=== PATIENT | male | born 1945 | race Caucasian/White ===

== ENCOUNTER 2018-09-12 13:45 | Emergency (ER) | payer MEDICARE ==
[~2018-09-12] VITALS: Ht 175.3 cm; Wt 79.0 kg
--- NOTE | 2018-09-12 14:05 | NUR ---
PT BIB [facility] FOR WEAKNESS, GENERAL MALAISE FOR A FEW DAYS. PER PATIENT, HE IS SEMI-HOMELESS AND WENT FOR A DRIVE LAST NIGHT. PT STATES HE CANT FIND HIS TRUCK AND DOESNT REMEMBER WHERE HE LEFT IT. PT STATED THAT HE RAN INTO [employer] LAST NIGHT AND CANT RECALL WHAT HAPPENED LAST NIGHT. PT IS UNABLE TO RECALL WHAT OCCURRED LAST NIGHT. PT PLACED ON BP, CARDIAC AND CONT. PULSE OXIMETER. ASSESSMENT COMPLETED. MD AT BEDSIDE. EKG DONE AND PRESENTED TO MD. REPORT GIVEN TO BHUMI.
[2018-09-12 14:35] LABS: BASOPHILS # (AUTO) 0.04 x10^3/uL (0-0.1); BASOPHILS % (AUTO) 0 % (0-1); EOSINOPHILS % (AUTO) 0 % (1-7); LYMPHOCYTES # (AUTO) 0.76 x10^3/uL (1-3.4); LYMPHOCYTES % (AUTO) 8 % (22-44); MD NO; MEAN CORPUSCULAR HEMOGLOBIN 29.7 pg (27.5-34.5); MEAN CORPUSCULAR HGB CONC 34.1 g/dL (33.2-36.2); MEAN PLATELET VOLUME 6.8 fL (7.4-10.4); MONOCYTES # (AUTO) 0.52 x10^3/uL (0.2-0.8); MONOCYTES % (AUTO) 5 % (2-9); NEUTROPHILS # (AUTO) 8.31 x10^3/uL (1.8-6.8); NEUTROPHILS % (AUTO) 86 % (42-75); PLATELET COUNT 316 x10^3/uL (130-400); RED BLOOD COUNT 4.46 x10^6/uL (4.38-5.82); RED CELL DISTRIBUTION WIDTH 13.7 % (9.4-14.8)
[2018-09-12 14:44] LABS: ALBUMIN 3.9 g/dL (3.4-5.0); ANION GAP 10 mmol/L (5-15); CALCIUM 9.2 mg/dL (8.5-10.1); CHLORIDE 103 mmol/L (98-107)
[2018-09-12 14:50] LABS: ALANINE AMINOTRANSFERASE 28 U/L (12-78); ALKALINE PHOSPHATASE 73 U/L (45-117); BILIRUBIN,TOTAL 1.2 mg/dL (0.2-1.0); TOTAL PROTEIN 7.4 g/dL (6.4-8.2); TROPONIN I < 0.015 ng/mL (0.000-0.045)
[2018-09-12 15:52] VITALS: BP 132/87
--- NOTE | 2018-09-12 15:53 | NUR ---
IV removed, pt states he is ready for discharge. Pt refuses cab voucher to [facility], states he is going to call the police to help him find his car.
== END 2018-09-12 16:15 | disposition home or self-care (01) ==
LOC: ED 16:00
DX: F30.2 Manic episode, severe with psychotic symptoms (principal)
CPT/HCPCS: 36415; 71045; 80053; 84484; 85025; 99284